=== PATIENT | male | born 1950 | race Caucasian/White ===

== ENCOUNTER → 2018-02-20 15:00 | Outpatient (CLI) | payer OTHER, SELFPAY ==
[2018-02-20 16:47] LABS: BUN Creatinine Ratio 16.9 (6-22); Blood Urea Nitrogen 22 mg/dL (9-20); Calcium 9.5 mg/dL (8.4-10.2); Carbon Dioxide 31 mmol/L (22-32); Chloride 99 mmol/L (98-107); Estimated Glomerular Filt Rate 54.9 mL/min (>60); Glucose 91 mg/dL (80-110); HEMOLYSIS < 15 (0-50); Potassium 4.3 mmol/L (3.4-5.1); Sodium 141 mmol/L (137-145)
== END ==
PROVIDERS: Visit Provider Internal Medicine
DX: R79.89 Other specified abnormal findings of blood chemistry (principal); I10 Essential (primary) hypertension; M79.673 Pain in unspecified foot
CPT/HCPCS: 36415; 80048

== ENCOUNTER → 2018-03-15 15:10 | Outpatient (CLI) | payer OTHER, SELFPAY ==
--- NOTE | 2018-03-15 | DI.US.S_ITS ---
PROCEDURE: US BASIA LIMITED SINGLE LEVEL INDICATIONS: VASCULAR DISEASE TECHNIQUE: Ankle-brachial indices were obtained bilaterally and recorded. COMPARISONS: FINDINGS: The brachial pressures are 115 mmHg right and 122 mm mercury left Right ankle brachial index (BASIA): 1.25 posterior tibial pressure 153 mmHg Left ankle brachial index (BASIA): 1.20 posterior tibial pressure 147 mmHg IMPRESSION: Normal BASIA ratios bilaterally Dictated by: Wild Polanco M.D. on 03/15/2018 at 15:58 Approved by: Wild Polanco M.D. on 03/15/2018 at 16:07
== END ==
PROVIDERS: PCP Family Medicine; Visit Provider Podiatrist
DX: I73.9 Peripheral vascular disease, unspecified (principal)
CPT/HCPCS: 93922

== ENCOUNTER 2018-05-15 13:35 | Emergency (ER) | payer OTHER, SELFPAY ==
[2018-05-15 13:41] VITALS: BP 136/74; PULSE 59; RESP 18; TEMP 36.7; O2SAT 97
--- NOTE | 2018-05-15 13:47 | ED_ITS ---
HPI - Neuro Symptoms/Deficit General Chief Complaint: Neuro Symptoms/Deficit Stated Complaint: thinks he had a stroke, sent by Dr. Friedman Time Seen by Provider: 05/15/18 13:47 Source: patient Mode of arrival: ambulatory Limitations: no limitations History of Present Illness HPI Narrative: Patient is a 59-year-old male sent over from the ophthalmology clinic for concerns of TIA/stroke. Patient states that every day for the past 3 days he has had episodes where he states that he loses approximately 95% of the vision in his left eye. He states that he goes black. He has no other symptoms at the time. He states that it resolved on its own. It is a gradual onset. Went to the residential building inspector today who sent him here for evaluation. At the time that he was here in the emergency department he was symptom free. On Anticoagulants: No Related Data Home Medications Medication Instructions Recorded Confirmed aspirin 325 mg PO DAILY #0 05/11/11 05/15/18 multivitamin 1 tab PO DAILY #0 05/23/11 05/15/18 fluorouracil 1 applic TOPICAL DIRECTED 05/15/18 05/15/18 Previous Rx's Medication Instructions Recorded simvastatin [Zocor] 40 mg PO HS #30 tab 11/12/17 atenolol 50 mg tablet 50 mg PO DAILY #30 tab 03/25/18 triamterene 37.5 1 cap PO DAILY #30 cap 05/13/18 mg-hydrochlorothiazide 25 mg capsule Allergies Allergy/AdvReac Type Severity Reaction Status Date / Time Penicillins [PENICILLINS] Allergy Unknown was told Verified 04/04/18 09:54 as a child Review of Systems Constitutional Denies fatigue, Denies fever(s) and Denies headache(s) Eyes Comments: Loss of vision in left eye ENT Ears, Nose, Mouth, and Throat: Denies vertigo, Denies dizziness, Denies facial pain and Denies headache(s) Cardiovascular Denies chest pain and Denies palpitations Respiratory Denies cough Gastrointestinal Gastrointestinal: Denies abdominal pain, Denies nausea and Denies vomiting Genitourinary Denies dysuria Musculoskeletal Denies myalgias, Denies arthralgias, Denies numbness and Denies tingling Integumentary/Breasts Denies lesions and Denies rash Neurologic Denies burning sensations, Denies confusion, Denies vertigo, Denies dizziness, Denies headache(s), Denies lack of coordination, Denies focal weakness, Denies memory loss, Denies numbness, Denies convulsions, Denies tingling and Denies paresthesias Psychiatric Denies confusion and Denies memory loss Endocrine Denies fatigue and Denies palpitations Hematologic/Lymphatic Denies easy bleeding and Denies easy bruising [facility] Medical History GERD (gastroesophageal reflux disease) (Chronic 1999) Hayfever (Chronic) Hearing loss (Chronic 2009) Hyperlipidemia (Chronic) Hypertension (Chronic 1984) Chicken pox (Resolved 1956) Keratosis (Resolved 2012) Plantar warts (Resolved 1994) Pneumonia (Resolved 1994) TIA (transient ischemic attack) (Resolved 2009) Surgical History No history of previous surgery (Resolved 08/24/16) Family History Brother Age: 70 Hypertension High cholesterol Father Hypertension High cholesterol Stroke Pneumonia Grandfather Cancer Lung cancer Grandmother Stroke Mother Dementia Grandmother No problems noted. Grandfather Alzheimer's dementia Social History Smoking Status: Former smoker Exam Initial Vital Signs Initial Vital Signs: Vital Signs Temperature 98.0 F 05/15/18 13:41 Pulse Rate 59 L 05/15/18 13:41 Respiratory Rate 18 05/15/18 13:41 Blood Pressure 136/74 05/15/18 13:41 Pulse Oximetry 97 05/15/18 13:41 Const General: cooperative, healthy appearing, comfortable, well developed, well groomed and No acute distress Orientation: alert, awake and oriented x3 HENMT Head: normal to inspection, normocephalic and atraumatic Ears: TM's normal bilaterally Eyes EOM: EOM intact bilaterally Other: Pupils dilated both eyes minimally reactive however he did have a dilated eye exam at the residential building inspector office prior to arrival here in the ER Resp Effort & Inspection: normal respiratory effort Auscultation: clear to auscultation bilaterally Cardio Rate: regular rate Rhythm: regular rhythm GI Inspection: non-distended Palpation: soft, No firm and No tender Back/Spine/Pelvis Back: No CVA tenderness Skin Lesions: lesions noted Rashes: rash noted Neuro General: alert, awake and oriented x3 Cranial Nerves: CN's II-XI intact bilaterally Cognition: normal cognition Speech: speech normal Gait: normal gait Motor: muscle tone normal throughout Sensory Exam: no sensory deficits noted Extrem General: normal to inspection and capillary refill normal Psych Appearance: grossly normal and well kempt Scores GCS Brown coma scale eye opening: Spontaneous Savery coma scale verbal response: Orientated Brown coma scale motor response: Obey commands Brown coma scale total score: 15 Course Orders Ordered: ED Orders 05/15/18 13:48 CT head/brain wo con Stat 05/15/18 14:29 Basic Metabolic Panel Stat C-Reactive Protein Quant Stat Complete Blood Count AUTO DIFF Stat Erythrocyte Sedimentation Rate Stat Partial Thromboplastin Time Stat Prothrombin Time INR Stat 05/15/18 14:32 EKG-12 Lead Stat Discontinued Medications Aspirin (Aspirin) 325 mg PO NOW ONE Stop: 05/15/18 15:30 Last Admin: 05/15/18 15:46 Dose: Vital Signs - 8 hr 05/15/18 13:41 05/15/18 14:30 05/15/18 14:45 Temperature 98.0 F Pulse Rate 59 L 55 L 53 L Respiratory Rate 18 12 15 Blood Pressure 136/74 Blood Pressure [Right Arm] 138/78 138/78 Pulse Oximetry 97 98 97 05/15/18 15:00 05/15/18 16:06 Temperature 97.7 F Pulse Rate 53 L 56 L Respiratory Rate 16 20 Blood Pressure 128/67 Blood Pressure [Right Arm] 114/74 Pulse Oximetry 97 98 MDM - Neuro Symptoms/Deficit Lab Data Attestation: I reviewed the patient's lab results. Result diagrams: 05/15/18 14:29 05/15/18 14:29 Lab Results 05/15/18 05/15/18 05/15/18 Range/Units 14:29 14:29 14:29 WBC 6.7 (4.5-11.0) X10^3/uL RBC 4.76 (4.5-5.9) X10^6/uL Hgb 14.3 (13.5-17.5) g/dL Hct 42.9 (41-53) % MCV 90.1 (80-100) fL MCH 30.1 (26-34) PG MCHC 33.4 (30-36) % RDW 13.1 (11.6-14.8) % Plt Count 206 (150-400) X10^3/uL Neut % (Auto) 66.4 (50-75) % Lymph % (Auto) 23.6 L (25-40) % Larue % (Auto) 6.7 (3-14) % Eos % (Auto) 2.7 (2-4) % Baso % (Auto) 0.6 (0-2) % Neut # (Auto) 4500 (7273-5051) /uL ESR 19 H (0-15) MM/HR PT (10.1-12.7) SECONDS INR (0.9-1.3) APTT (26.4-36.2) SECONDS Sodium 144 (137-145) mmol/L Potassium 4.0 (3.4-5.1) mmol/L Chloride 102 (98-107) mmol/L Carbon Dioxide 29 (22-32) mmol/L BUN 23 H (9-20) mg/dL Creatinine 1.20 (0.66-1.25) mg/dL Estimated GFR > 60.0 (>60) mL/min BUN/Creatinine Ratio 19.2 (6-22) Glucose 99 (80-110) mg/dL Calcium 9.2 (8.4-10.2) mg/dL C-Reactive Protein (<1.0) mg/dL 05/15/18 05/15/18 Range/Units 14:29 14:29 WBC (4.5-11.0) X10^3/uL RBC (4.5-5.9) X10^6/uL Hgb (13.5-17.5) g/dL Hct (41-53) % MCV (80-100) fL MCH (26-34) PG MCHC (30-36) % RDW (11.6-14.8) % Plt Count (150-400) X10^3/uL Neut % (Auto) (50-75) % Lymph % (Auto) (25-40) % Larue % (Auto) (3-14) % Eos % (Auto) (2-4) % Baso % (Auto) (0-2) % Neut # (Auto) (1260-6996) /uL ESR (0-15) MM/HR PT 11.0 (10.1-12.7) SECONDS INR 1.0 (0.9-1.3) APTT 27 (26.4-36.2) SECONDS Sodium (137-145) mmol/L Potassium (3.4-5.1) mmol/L Chloride (98-107) mmol/L Carbon Dioxide (22-32) mmol/L BUN (9-20) mg/dL Creatinine (0.66-1.25) mg/dL Estimated GFR (>60) mL/min BUN/Creatinine Ratio (6-22) Glucose (80-110) mg/dL Calcium (8.4-10.2) mg/dL C-Reactive Protein < 0.5 (<1.0) mg/dL Imaging Data CT scan - head: Radiologist's impression: PROCEDURE: CT HEAD/BRAIN WO CON INDICATIONS: off and on vision loss TECHNIQUE: Noncontrast 4.5 mm thick angled axial sections acquired from the foramen magnum to the vertex, with coronal and sagittal reformats. For radiation dose reduction, the following was used: automated exposure control, adjustment of mA and/or kV according to patient size. COMPARISON: [facility], , STROKE PROTOCOL A, 10/14/2010, 9:16. FINDINGS: Image quality: Excellent. CSF spaces: Basal cisterns are patent. No extra-axial fluid collections. The ventricles are symmetric in size and shape. Brain: No intracranial bleeds or masses. There is cerebral volume loss for age , with resultant ventricular and sulcal prominence. There are periventricular and deep white matter chronic small vessel ischemic changes. There is intracranial internal carotid artery atherosclerosis. Skull and face: Calvarium and visualized facial bones appear intact, without suspicious lesions. Sinuses: Visualized sinuses and mastoids are clear. IMPRESSION: No acute intracranial process is seen. If there is strong clinical suspicion for an acute stroke, please consider an MRI for further evaluation, as it is more sensitive (assuming that there is no contraindication to MRI). Dictated by: Yunier Donnelly M.D. on 05/15/2018 at 13:09 Approved by: Yunier Donnelly M.D. on 05/15/2018 at 13:11 ECG Data Attestation: I personally reviewed and interpreted this ECG as follows: Prior ECG tracings: not available for review Interpretation: Sinus bradycardia Ventricular rate of 52 Normal axis Normal intervals Normal QRS No ST T wave changes MDM Narrative Medical decision making narrative: Patient with history concerning for vascular abnormalities potentially CVA/TIA. He was completely asymptomatic the time of my evaluation. Head CT was unremarkable. EKG unremarkable except for bradycardia. I discussed the case with Dr. Fermin who agreed to admit the patient for TIA workup. I discussed this with the patient and after this discussion he stated that he did not want to be admitted to the hospital. He did not give a specific reason however he did state that him and his only had 1 car and he had that car and his had no way of coming to the ER to pick that car up. I did inform him that his symptoms were concerning for a potential stroke. Also informed him that his residential building inspector felt this way as well. I informed him that staying here in the emergency department where he can be observed and to get further studies would be warranted. The patient states that his prior primary care doctor has retired and he does not have a current appointment scheduled with any new providers. He stated that he would rather leave the emergency department to go to his primary care doctor's office to set up an appointment with a new provider and get all the studies done as an outpatient. I informed him that this could potentially put a significant delay in the studies and in the meantime he could have worsening outcomes to include a larger stroke that would leave a permanent disability or even . Patient expressed understanding of all of this. He was alert oriented x3 and in my opinion had capacity to make decisions. He stated that he still did not want to be admitted to the hospital. Patient did sign AMA paperwork. He was informed that he could return to the emergency department at any point if he changes his mind would like to be admitted to the hospital. Discharge Plan Departure Patient Disposition: Left Against Medical Advice Clinical Impression: TIA (transient ischemic attack) Discharge Date/Time: 05/15/18 16:09 Interventions: ED Discharge Assessment Last Done: 05/15/18 16:06 Instructions: DI for Transient Ischemic Attack Activity Restrictions/Additional Instructions: After our discussion today you opted not to be admitted to the hospital. I recommended that you do come into the hospital to get further studies of your symptoms to evaluate for possible TIA versus stroke. Going home today means that these studies will be significantly delayed. I would highly recommend that you contact [facility] to make appointments with the primary care doctor. You can return to the emergency department at any time for new or worsening symptoms or the return of your symptoms or if you change your mind and would like to be admitted. Prescriptions: No Action aspirin 325 mg Tablet 325 mg PO DAILY Qty: 0 RF: 0 multivitamin Tablet 1 tab PO DAILY Qty: 0 RF: 0 simvastatin [Zocor] 40 MG tablet 40 mg PO HS Qty: 30 RF: 11 atenolol 50 mg tablet 50 mg PO DAILY Qty: 30 RF: 0 triamterene-hydrochlorothiazid [Dyazide] 37.5-25 mg capsule 1 cap PO DAILY Qty: 30 RF: 0 fluorouracil 5 % cream 1 applic Topical DIRECTED RF: 0 Stand Alone Forms: Against Medical Advice
[2018-05-15 14:30] VITALS: BP 138/78; PULSE 55; RESP 12; O2SAT 98
[2018-05-15 14:40] LABS: Add Manual Diff / Slide Review NO; Basophils Percent Auto 0.6 % (0-2); Eosinophils Percent Auto 2.7 % (2-4); Hematocrit 42.9 % (41-53); Hemoglobin 14.3 g/dL (13.5-17.5); Lymphocytes Percent Auto 23.6 % (25-40); Mean Corpuscular HGB Conc 33.4 % (30-36); Mean Corpuscular Hemoglobin 30.1 PG (26-34); Mean Corpuscular Volume 90.1 fL (80-100); Monocytes Percent Auto 6.7 % (3-14); Neutrophils Absolute Auto 4500 /uL (3000-5900); Neutrophils Percent Auto 66.4 % (50-75); Platelet Count 206 X10^3/uL (150-400); Red Blood Cell Count 4.76 X10^6/uL (4.5-5.9); Red Cell Distribution Width 13.1 % (11.6-14.8); White Blood Cell Count 6.7 X10^3/uL (4.5-11.0)
[2018-05-15 14:45] VITALS: BP 138/78; PULSE 53; RESP 15; O2SAT 97
[2018-05-15 14:46] LABS: PTT Partial Thromboplastin Tim 27 SECONDS (26.4-36.2)
[2018-05-15 14:49] LABS: BUN Creatinine Ratio 19.2 (6-22); Blood Urea Nitrogen 23 mg/dL (9-20); Calcium 9.2 mg/dL (8.4-10.2); Carbon Dioxide 29 mmol/L (22-32); Chloride 102 mmol/L (98-107); Estimated Glomerular Filt Rate > 60.0 mL/min (>60); Glucose 99 mg/dL (80-110); HEMOLYSIS < 15 (0-50); Sodium 144 mmol/L (137-145)
[2018-05-15 14:57] LABS: Erythrocyte Sedimentation Rate 19 MM/HR (0-15)
[2018-05-15 15:00] VITALS: BP 114/74; PULSE 53; RESP 16; O2SAT 97
[2018-05-15 15:11] LABS: C-Reactive Protein Quant < 0.5 mg/dL (<1.0)
[2018-05-15 16:06] VITALS: BP 128/67; PULSE 56; RESP 20; TEMP 36.5; O2SAT 98
== END 2018-05-15 16:09 | disposition left against medical advice (07) ==
PROVIDERS: Emergency Provider Emergency Medicine; PCP Family Medicine
DX: G54.9 Nerve root and plexus disorder, unspecified (principal)
CPT/HCPCS: 36591; 70450; 80048; 85025; 85610; 85651; 85730; 86140; 93005; 99283; 99285; 99291

== ENCOUNTER → 2018-06-05 07:07 | Outpatient (CLI) | payer OTHER, SELFPAY ==
--- NOTE | 2018-06-05 07:09 | DI.ECHO.S_ITS ---
[facility] +---------+ [facility] +---------+ : : [address] : : : [place], [place] : : : : [id number] : : : : Phone: [phone]+ Echocardiogram Report + + :Name: VANESA SANCHEZ Study Date: 06/05/2018 Height: 70 in : :[facility] Exam Location: [facility] Weight: 220 lb : : Gender: Male BSA: 2.2 m2 : :: 1950 Age: 68 yrs BP: 122/80 mmHg: :Reason For Study: TIA : : Performed By: Shruti Guajardo : :Referring: ANNIE MOSS : + + Interpretation Summary 1) Normal left ventricular thickness, size, wall motion, and systolic function (EF 55-60%). 2) Normal right ventricular size and function. 3) Mild aortic regurgitation and mild mitral regurgitation are present. 4) No prior Echo available for comparison. Procedure: A two-dimensional transthoracic echocardiogram with color flow and Doppler was performed. The study quality was technically adequate. There is no prior echocardiogram noted for this patient. The patient was in normal sinus rhythm during the exam. Left Ventricle: The left ventricle is normal in size. Left ventricular wall thickness is normal. The ejection fraction is estimated to be 55-60%. Left ventricular systolic function is normal without focal wall motion abnormalities. Right Ventricle: The right ventricle is normal in size and function. Atria: Both atria are normal in size. The interatrial septum is intact with no evidence for an atrial septal defect. Mitral Valve: The mitral valve is normal in structure and function. There is mild mitral regurgitation. Aortic Valve: The aortic valve is trileaflet. The aortic valve opens well. There is no aortic valve stenosis. There is mild aortic regurgitation. Tricuspid Valve: The tricuspid valve is normal in structure and function. There is mild tricuspid regurgitation. The right ventricular systolic pressure is estimated to be at least 31 mmHg based on an estimated right atrial pressure of 3 mm Hg. Pulmonic Valve: The pulmonic valve is normal in structure and function. There is a trace or physiologic amount of pulmonic regurgitation. Great Vessels: The ascending aorta is normal in size. The IVC is of normal diameter and collapses greater than 50% with a sniff. This suggests a low right atrial pressure of 3 mm Hg. Pericardium/ Pleura There is an anterior echo-free space consistent with a fat pad. There is no pericardial effusion. There is no pleural effusion. MMode/2D Measurements & Calculations LVIDd: 4.7 cm LVOT diam: 2.0 cm LVIDs: 2.8 cm asc Aorta Diam: 3.2 cm FS: 40.4 % IVSd: 0.84 cm LVPWd: 0.75 cm LV taveras. diameter/BSA (cm/m^2): 2.2 LV sys. diameter/BSA (cm/m^2): 1.3 LA A2 area: 15.0 cm2 RA long axis: 5.7 cm LA A4 area: 18.2 cm2 RA area: 18.5 cm2 LA length (vol): 5.0 cm RA vol: 51.3 ml LA vol: 46.3 ml RA : 23.6 ml/m2 LA vol index: 21.3 ml/m2 TAPSE: 2.3 cm Doppler Measurements & Calculations Ao V2 max: 121.7 cm/sec LVOT Max Robert: 101.9 cm/sec Ao V2 mean: 78.7 cm/sec LV V1 max P.2 mmHg Ao max P.9 mmHg LV V1 VTI: 18.7 cm Ao mean P.8 mmHg COLLEEN(I,D): 2.2 cm2 Ao V2 VTI: 26.6 cm COLLEEN(V,D): 2.6 cm2 sev ratio: 0.70 COLLEEN indexed to BSA (cm^2/m^2): 1.0 AI P1/2t: 707.1 msec AI dec slope: 141.7 cm/sec2 MV E max robert: 62.0 cm/sec TR max robert: 265.5 cm/sec MV A max robert: 72.0 cm/sec TR max P.2 mmHg MV E/A: 0.86 PA V2 max: 53.5 cm/sec Med Peak E' Robert: 7.6 cm/sec PA V2 mean: 35.2 cm/sec E/E' med: 8.2 PA mean P.57 mmHg Lat Peak E' Robert: 8.0 cm/sec PA pr(Accel): -8.3 mmHg E/E' lat: 7.7 E/e' average: 8.0 MV dec time: 0.17 sec Reading Physician:12:49 PM
--- NOTE | 2018-06-05 07:09 | DI.US.S_ITS ---
PROCEDURE: US CAROTID DOPPLER BI INDICATIONS: TIA TECHNIQUE: Color and pulse Doppler interrogation was performed of both carotid systems, with image documentation and velocity measurements. COMPARISON: None. FINDINGS: Stenosis calculations are based on SRU (Society of Radiologists in Ultrasound) criteria. Right side: Brachial blood pressure: 133/77 mm Hg. Common carotid artery peak systolic velocity: 109 cm/sec. Internal carotid artery peak systolic velocity: 90 cm/sec. Internal carotid artery end diastolic velocity: 30 cm/sec. External carotid artery peak systolic velocity: 64 cm/sec. ICA/CCA peak systolic ratio: 0.8. Dinh scale imaging description: Mild soft plaque Percent internal carotid artery stenosis: Less than 50% stenosis. Vertebral artery: Flow direction is antegrade. Left side: Brachial blood pressure: 136/74 mm Hg. Common carotid artery peak systolic velocity: 111 cm/sec. Internal carotid artery peak systolic velocity: 76 cm/sec. Internal carotid artery end diastolic velocity: 27 cm/sec. External carotid artery peak systolic velocity: 76 cm/sec. ICA/CCA peak systolic ratio: 0.7. Dinh scale imaging description: Minimal soft plaque Percent internal carotid artery stenosis: Less than 50% stenosis. Vertebral artery: Flow direction is antegrade. IMPRESSION: Less than 50% stenosis at the proximal internal carotid arteries bilaterally. Dictated by: Alejo Choe M.D. on 06/05/2018 at 8:49 Approved by: Alejo Choe M.D. on 06/05/2018 at 8:51
--- NOTE | 2018-06-05 07:09 | DI.US.S_ITS ---
PROCEDURE: US ABD AORTA ANEURYSM SCREEN INDICATIONS: TIA TECHNIQUE: Real time scanning was performed of the aorta and iliac arteries, with image documentation. COMPARISON: None. FINDINGS: Aorta: Proximal aortic diameter measures 1.7 cm. Mid-aorta measures 1.9 cm. Distal aortic diameter is 1.6 cm. Iliac arteries: Right common iliac artery measures 0.9 cm. Left common iliac artery measures 0.9 cm. IMPRESSION: No abdominal aortic or proximal common iliac artery aneurysm. Dictated by: Jose Wyman [facility] Interpreted: Logan Carias MD on 06/05/2018 at 8:17 Approved by: Logan Carias M.D. on 06/06/2018 at 10:26
== END ==
PROVIDERS: PCP Student in an Organized Health Care Education/Training Program; Visit Provider Student in an Organized Health Care Education/Training Program
DX: I65.23 Occlusion and stenosis of bilateral carotid arteries (principal); I08.3 Combined rheumatic disorders of mitral, aortic and tricuspid valves; G45.9 Transient cerebral ischemic attack, unspecified; G45.3 Amaurosis fugax; Z13.6 Encounter for screening for cardiovascular disorders; Z87.891 Personal history of nicotine dependence
CPT/HCPCS: 76706; 93306; 93880

== ENCOUNTER → 2019-09-18 15:07 | Outpatient (CLI) | payer OTHER, SELFPAY ==
[2019-09-18 17:15] LABS: Uric Acid 7.2 mg/dL (3.5-8.5)
[2019-09-18 17:23] LABS: C-Reactive Protein Quant < 0.5 mg/dL (<1.0); Rheumatoid Factor < 8.6 IU/mL (<12.0)
[2019-09-18 17:27] LABS: Erythrocyte Sedimentation Rate 34 MM/HR (0-15)
[2019-09-21 08:05] LABS: ANA Screen, IFA NEGATIVE (NEGATIVE)
[2019-09-21 15:40] LABS: HLA B27 NEGATIVE (Negative)
== END ==
PROVIDERS: PCP Student in an Organized Health Care Education/Training Program; Referring Provider Podiatrist; Visit Provider Podiatrist
DX: M79.671 Pain in right foot (principal)
CPT/HCPCS: 36415; 81374; 84550; 85651; 86038; 86140; 86430

== ENCOUNTER → 2020-01-21 08:59 | Outpatient (CLI) | payer OTHER, SELFPAY ==
[2020-01-21 10:09] LABS: Add Manual Diff / Slide Review NO; Basophils Absolute Auto 0 /uL (0-100); Basophils Percent Auto 0.5 % (0-2); Eosinophils Absolute Auto 100 /uL (0-450); Eosinophils Percent Auto 2.1 % (2-4); Hematocrit 42.7 % (41-53); Hemoglobin 14.6 g/dL (13.5-17.5); Lymphocytes Absolute Auto 1100 /uL (1100-4500); Lymphocytes Percent Auto 16.2 % (25-40); Mean Corpuscular HGB Conc 34.3 % (30-36); Mean Corpuscular Hemoglobin 31.1 PG (26-34); Mean Corpuscular Volume 90.8 fL (80-100); Monocytes Absolute Auto 400 /uL (0-900); Monocytes Percent Auto 5.9 % (3-14); Neutrophils Absolute Auto 5400 /uL (1500-7000); Neutrophils Percent Auto 75.3 % (50-75); Platelet Count 196 X10^3/uL (150-400); Red Blood Cell Count 4.71 X10^6/uL (4.5-5.9); Red Cell Distribution Width 12.6 % (11.6-14.8); White Blood Cell Count 7.1 X10^3/uL (4.5-11.0)
[2020-01-21 10:56] LABS: Alanine Aminotransferase 18 IU/L (<50); Albumin 4.6 g/dL (3.5-5.0); Albumin Globulin Ratio 1.6 (1.0-2.8); Alkaline Phosphatase 74 U/L (38-126); Aspartate Aminotransferase 25 IU/L (17-59); Bilirubin Total 0.7 mg/dL (0.2-1.3); Bilirubin Unconjugated 0.6 mg/dL (0.0-1.1); Globulin 2.9 g/dL (1.7-4.1); HEMOLYSIS < 15 (0-50); Total Protein 7.5 g/dL (6.3-8.2); Uric Acid 8.9 mg/dL (3.5-8.5)
== END ==
PROVIDERS: PCP Student in an Organized Health Care Education/Training Program; Referring Provider Physician Assistant; Visit Provider Physician Assistant
DX: B35.1 Tinea unguium (principal); B35.0 Tinea barbae and tinea capitis
CPT/HCPCS: 36415; 80076; 84550; 85025

== ENCOUNTER → 2020-04-08 11:04 | Outpatient (CLI) | payer OTHER, SELFPAY ==
[2020-04-08 13:14] LABS: Alanine Aminotransferase 20 IU/L (<50); Albumin 4.4 g/dL (3.5-5.0); Albumin Globulin Ratio 1.4 (1.0-2.8); Alkaline Phosphatase 70 U/L (38-126); Aspartate Aminotransferase 29 IU/L (17-59); Bilirubin Total 0.7 mg/dL (0.2-1.3); Bilirubin Unconjugated 0.6 mg/dL (0.0-1.1); Globulin 3.1 g/dL (1.7-4.1); HEMOLYSIS < 15 (0-50); Total Protein 7.5 g/dL (6.3-8.2)
== END ==
PROVIDERS: PCP Student in an Organized Health Care Education/Training Program; Referring Provider Physician Assistant; Visit Provider Physician Assistant
DX: B35.1 Tinea unguium (principal)
CPT/HCPCS: 36415; 80076

== ENCOUNTER → 2020-09-22 12:53 | Outpatient (CLI) | payer OTHER, SELFPAY ==
[2020-09-22 14:14] LABS: BUN Creatinine Ratio 20.4 (6-22); Blood Urea Nitrogen 28 mg/dL (9-20); Calcium 9.5 mg/dL (8.4-10.2); Carbon Dioxide 33 mmol/L (22-32); Chloride 100 mmol/L (98-107); Estimated Glomerular Filt Rate 51.2 mL/min (>60); Glucose 100 mg/dL (80-110); HEMOLYSIS < 15 (0-50); Potassium 4.1 mmol/L (3.4-5.1); Sodium 139 mmol/L (137-145)
== END ==
PROVIDERS: PCP Student in an Organized Health Care Education/Training Program; Referring Provider Student in an Organized Health Care Education/Training Program; Visit Provider Student in an Organized Health Care Education/Training Program
DX: I10 Essential (primary) hypertension (principal)
CPT/HCPCS: 36415; 80048

== ENCOUNTER → 2020-10-05 12:04 | Outpatient (CLI) | payer OTHER, SELFPAY ==
[2020-10-06 11:23] LABS: Fecal Immunochemical Test Negative (Negative)
== END ==
PROVIDERS: PCP Student in an Organized Health Care Education/Training Program; Referring Provider Student in an Organized Health Care Education/Training Program; Visit Provider Student in an Organized Health Care Education/Training Program
DX: Z12.11 Encounter for screening for malignant neoplasm of colon (principal)
CPT/HCPCS: 82274

== ENCOUNTER → 2022-08-25 13:30 | Outpatient (CLI) | payer OTHER, SELFPAY ==
[2022-08-25 14:34] LABS: COVID19 -Nasal RAPID Negative (Negative)
== END ==
PROVIDERS: PCP Family Medicine; Referring Provider Internal Medicine; Visit Provider Internal Medicine
DX: Z20.822 Contact with and (suspected) exposure to COVID-19 (principal)
CPT/HCPCS: 87635; C9803

== ENCOUNTER → 2022-08-25 13:33 | Outpatient (CLI) | payer OTHER, SELFPAY ==
--- NOTE | 2022-08-29 11:19 | PM.PFT.1 ---
Pulmonary Function Test Referral & Results Date Patient Seen: 08/25/22 Requesting provider: Harley Randolph Results: The spirometry demonstrates an FVC of 3.33 L which is 77% of predicted. The FEV1 was measured at 1.73 L which is 55% of predicted. The FEV1/FVC ratio was 52 which is 71% of predicted. Following the administration of bronchodilator there was an 18% improvement in FEV1 and a 90% improvement in FEF 25-75%. Lung volumes show an SVC of 3.60 L which is 79% of predicted. The diffusing capacity was measured at 24.23 which is 74% of predicted. The maximum voluntary ventilation was reduced Interpretation: This study demonstrates moderate obstructive lung disease with evidence of significant benefit following bronchodilator as above There is also mild reduction in lung volumes suggesting mild restrictive lung disease There is also [id number] reduction diffusing capacity suggesting element of disease at the capillary alveolar level Clinical correlation suggested but this is consistent with a diagnosis of COPD
== END ==
PROVIDERS: PCP Family Medicine; Referring Provider Family Medicine; Visit Provider Family Medicine
DX: J44.9 Chronic obstructive pulmonary disease, unspecified (principal); Z20.822 Contact with and (suspected) exposure to COVID-19
CPT/HCPCS: 87635; 94060; 94726; 94729; C9803

== ENCOUNTER → 2024-09-09 13:43 | Outpatient (CLI) | payer OTHER, SELFPAY ==
--- NOTE | 2024-09-09 13:49 | DI.CT.S_ITS ---
PROCEDURE: CT LUNG LOW DOSE SCREENING INDICATIONS: FORMER SMOKER TECHNIQUE: Noncontrast 2.0-2.5 mm thick sections acquired from the pulmonary apices to the posterior costophrenic angles. 7 mm thick axial MIP, and 5 mm coronal and sagittal reformats were then acquired. For radiation dose reduction, the following was used: automated exposure control, adjustment of mA and/or kV according to patient size. COMPARISON: [facility], CHEST 2 VIEW, 10/20/2014, 11:06. FINDINGS: Image quality: Diagnostic. Lower Neck: No enlarged lymph nodes. Thyroid: No thyroid nodules which require sonographic follow up, per consensus guidelines. Axillae: No enlarged lymph nodes. Chest Wall: Unremarkable. Bones: Unremarkable. Lungs and Pleura: No pneumothorax or pleural effusions. No consolidation or suspicious nodules. Heart: Heart size is normal. No pericardial effusion. Thoracic Vessels: The aorta and pulmonary arteries demonstrate normal size. Mediastinum and Jessica: No enlarged lymph nodes. Esophagus: No wall thickening. Moderate hiatal hernia. Upper Abdomen: Visualized upper abdomen solid organs and bowel loops appear normal. IMPRESSION: No suspicious pulmonary nodules. LUNG-RADS 1; continued annual screening, if eligible. Clinically Significant Non-pulmonary Findings: Hiatal hernia Dictated by: Betsy Carpenter M.D. on 09/09/2024 at 20:06 Approved by: Betsy Carpenter M.D. on 09/09/2024 at 20:07
== END ==
PROVIDERS: PCP Family Medicine; Referring Provider Family Medicine; Visit Provider Family Medicine
DX: Z87.891 Personal history of nicotine dependence (principal); Z12.2 Encounter for screening for malignant neoplasm of respiratory organs; K44.9 Diaphragmatic hernia without obstruction or gangrene
CPT/HCPCS: 71271